=== PATIENT | male | born 1990 | race Caucasian/White ===

== ENCOUNTER 2019-03-26 08:30 | Inpatient (IN) | payer MEDICAID ==
[~2019-03-26] VITALS: Ht 167.6 cm; Wt 78.5 kg
[2019-03-26 08:51] VITALS: BP 115/76
--- NOTE | 2019-03-26 08:54 | NUR ---
PT TO RESTROOM
--- NOTE | 2019-03-26 09:15 | NUR ---
38 Y/O M C/O LOWER ABDOMINAL PAIN 5/10 X1 DAY WITH N/V. PT DENIES FEVER, DIARRHEA. PT BOWEL SOUNDS PRESENT ALL FOUR QUADRANTS. PT VSS. POSITIONED HIGH FOWLERS. NKA
--- NOTE | 2019-03-26 09:37 | NUR ---
DR WILSON AT BEDSIDE EXAMINING PATIENT.
[2019-03-26] MEDS ORDERED: NACL 0.9% 1,000 ML IV ONE (09:39)
[2019-03-26] MEDS ORDERED: ONDANSETRON 4 MG/2 ML VIAL IVP ONE (09:40)
[2019-03-26] MEDS ORDERED: KETOROLAC 30 MG/ML VIAL IVP ONE (09:40)
--- NOTE | 2019-03-26 09:41 | NUR ---
PT LEFT FOR CT BY WHEELCHAIR.
[2019-03-26 10:26] LABS: BASOPHILS % (AUTO) 0.1 % (0.0-2.0); EOSINOPHILS # (AUTO) 0.2 K/uL (0-0.4); EOSINOPHILS % (AUTO) 1.2 % (0.0-4.0); HEMATOCRIT 45.7 % (36-52); HEMOGLOBIN 15.2 g/dL (12.0-18.0); LYMPHOCYTES # (AUTO) 0.7 K/uL (2.0-11.5); LYMPHOCYTES % (AUTO) 4.9 % (20.5-51.1); MEAN CORPUSCULAR HEMOGLOBIN 29 pg (27-31); MEAN CORPUSCULAR HGB CONC 33 g/dL (33-37); MEAN CORPUSCULAR VOLUME 87.2 fL (80-94); MONOCYTES # (AUTO) 0.6 K/uL (0.8-1.0); MONOCYTES % (AUTO) 4.1 % (1.7-9.3); NEUTROPHILS # (AUTO) 12.7 K/uL (1.8-7.7); NEUTROPHILS % (AUTO) 89.7 % (42.2-75.2); PLATELET COUNT (AUTO) 211 K/uL (140-450); RED BLOOD CELL COUNT(AUTO) 5.23 MIL/uL (4.20-6.10); WHITE BLOOD COUNT (AUTO) 14.2 K/uL (4.8-10.8)
[2019-03-26] MEDS ORDERED: ACETAMINOPHEN 325 MG TAB PO PRN (11:05)
[2019-03-26] MEDS ORDERED: MORPHINE SULFATE 2 MG/ML SYR IVP PRN (11:05)
[2019-03-26] MEDS ORDERED: HYDROcodone/APAP 7.5/325 MG 1 TAB PO PRN (11:05)
[2019-03-26] MEDS ORDERED: ONDANSETRON 4 MG/2 ML VIAL IVP PRN ×2 (11:05→14:05)
[2019-03-26 11:13] LABS: ANION GAP 15.2 (8-16); CARBON DIOXIDE 24.6 mmol/L (21-32); POTASSIUM 3.8 mmol/L (3.5-5.1)
[2019-03-26 11:14] LABS: CREATININE 0.8 mg/dL (0.7-1.3); TOTAL BILIRUBIN 0.7 mg/dL (0.0-1.0)
[2019-03-26 11:15] LABS: ALBUMIN 4.3 g/dL (3.4-5.0)
--- NOTE | 2019-03-26 11:21 | NUR ---
X-RAY AT BEDSIDE.
--- NOTE | 2019-03-26 11:38 | NUR ---
Patient will be admitted to care of DR FISH. Admited to MED SURG. Will go to [id number]. Belongings list completed. Report to TANIA SANDERS.
[2019-03-26 11:40] LABS: PROTHROMBIN TIME 10.1 secs (10.8-13.4)
[2019-03-26 11:44] LABS: MAGNESIUM 1.8 mg/dL (1.8-2.4); PHOSPHORUS 2.7 mg/dL (2.5-4.9); THYROID STIMULATING HORMONE 0.75 uIU/mL (0.34-3.74)
--- NOTE | 2019-03-26 12:20 | NUR ---
RECEIVED PT FROM ER. PT IS AAOX4. PT HAS NKA. SKIN INTACT. PT IS SCHEDULED FOR LAP APPY. WILL CONTINUE TO MONITOR
[2019-03-26 12:23] LABS: BILIRUBIN,URINE NEGATIVE (NEGATIVE); BLOOD, URINE NEGATIVE (NEGATIVE); COLOR,URINE YELLOW (YELLOW); LEUKOCYTE ESTERASE ,URINE NEGATIVE (NEGATIVE); NITRITE, URINE NEGATIVE (NEGATIVE); PH,URINE 5.5 (5.0-9.0); UGLUCOSE NEGATIVE (NEGATIVE)
[2019-03-26 12:24] LABS: APPEARANCE,URINE SLIGHTLY HAZY (CLEAR)
--- NOTE | 2019-03-26 12:30 | NUR ---
OBTAINED CONSENT FOR SURGERY. DR. POSADAS TALKED TO THE PT REGARDING THE PROCEDURE. PT VERBALIZED UNDERSTANDING OF THE PROCEDURE. NO FAMILY AT BEDSIDE. PT SIGNED CONSENT.
[2019-03-26 12:32] LABS: BARBITURATE, URINE NEG. ng/ml (NEG <=200); BENZODIAZEPINE, URINE NEG. ng/mL (NEG <=200); CANNABINOID, URINE NEG. ng/mL (NEG <=50); COCAINE, URINE NEG. ng/mL (NEG <=300); OPIATE, URINE NEG. ng/mL (NEG <=2000); PHENCYCLIDINE SCREEN,URINE NEG. ng/mL (NEG <=25)
--- NOTE | 2019-03-26 12:35 | NUR ---
OR STAFF WHEELED THE PT TO OR FOR LAP APPY.
[2019-03-26] MEDS ORDERED: BUPIVACAINE-MPF/EPI 0.25% 30 ML VIAL INJ ONE (12:47)
[2019-03-26] MEDS ORDERED: LIDOCAINE 1% 500 MG/50 ML VIAL ONE (12:53)
[2019-03-26] MEDS ORDERED: GLYCOPYRROLATE 0.2 MG/ML VIAL ONE (13:00)
[2019-03-26] MEDS ORDERED: SUCCINYLCHOLINE CHLORIDE 200 MG/10 ML VIAL IVP ONE (13:00)
[2019-03-26] MEDS ORDERED: DESFLURANE 240 ML BTL INH ONE (13:00)
[2019-03-26] MEDS ORDERED: HYDROmorphone 1 MG/ML AMP ONE (13:00)
[2019-03-26] MEDS ORDERED: ROCURONIUM 50 MG/5 ML VIAL IV ONE (13:00)
[2019-03-26] MEDS ORDERED: DEXAMETHASONE 4 MG/ML VIAL ONE (13:00)
[2019-03-26] MEDS ORDERED: fentaNYL 0.05 MG/ML VIAL ONE (13:00)
[2019-03-26] MEDS ORDERED: ONDANSETRON 4 MG/2 ML VIAL ONE (13:00)
[2019-03-26] MEDS ORDERED: KETOROLAC 30 MG/ML VIAL ONE (13:00)
[2019-03-26] MEDS ORDERED: PROPOFOL 200 MG/20 ML VIAL IV ONE (13:00)
[2019-03-26] MEDS ORDERED: NEOSTIGMINE 1:1000 10 MG/10 ML VIAL ONE (13:00)
[2019-03-26] MEDS ORDERED: HYDROmorphone 1 MG/ML AMP IVP PRN (14:05)
--- NOTE | 2019-03-26 14:40 | NUR ---
PT WAS WHEELED BACK TO HIS ROOM. PT IS AWAKE AND ALERT. NO SIGNS OF DISTRESS. PT DENIED PAIN. V/S TAKEN. CALL LIGHT WITHIN PT'S REACH, BED ON LOW, SIDERAILS UP.
--- NOTE | 2019-03-26 16:05 | NUR ---
FREQUENT ROUNDING DONE. PT IS SLEEPING. FAMILY AT BEDSIDE. PT IS STABLE, NO SIGNS OF DISTRESS. CALL LIGHT WITHIN PT'S REACH. BED ON LOW, SIDERAILS UP.
[2019-03-26] MEDS: metroNIDAZOLE 500 MG/NS PREMIX 100 ML IV SCH ×2 (18:00→19:54)
--- NOTE | 2019-03-26 18:00 | NUR ---
SCHEDULED MEDS GIVEN. PT IS AWAKE AND ALERT. PT DIDN'T COMPLAIN OF ANY PAIN. WILL CONTINUE TO MONITOR
--- NOTE | 2019-03-26 19:05 | NUR ---
POST OP WOUNDS PHOTHOGRAPHED AND ATTACHED IN THE CHART. IV FLUID HANGED.
--- NOTE | 2019-03-26 19:15 | NUR ---
REPORT GIVEN TO INTERNAL AFFAIRS COMMANDER NURSE FOR CONTINUITY OF CARE. PT IS STABLE. CALL LIGHT WITHIN PT'S REACH. BED ON LOW, SIDERAILS UP.
--- NOTE | 2019-03-26 19:16 | NUR ---
RECEIVED REPORT FROM AM SHIFT NURSE. PATIENT ALERT AND ORIENTED X4. NO APPARENT DISTRESS NOTED. REVEIWED CURRENT PLAN OF CARE. VERBALIZED UNDERSTANDING. WILL CONTINUE TO MONITOR.
[2019-03-26] MEDS: DEXT 5% / NACL 0.45% 1,000 ML IV SCH ×2 (19:30→22:45)
--- NOTE | 2019-03-26 20:30 | NUR ---
Received report from the TANIA Tomlin. Initial assessment done. Pt. resting and sleeping. Pt. denies pain. Keep environment quiet and dimlighted.
--- NOTE | 2019-03-26 20:30 | NUR ---
ENDORSED TO NURSE ACEVEDO FOR CONTINUITY OF CARE.
[2019-03-26] MEDS: DOCUSATE SODIUM 100 MG GELCAP PO SCH (22:43)
--- NOTE | 2019-03-26 22:43 | NUR ---
Due meds. given. Pt. returned to sleep. Denies any pain.
[2019-03-27] VITALS: BP 106/56
[2019-03-27] MEDS: metroNIDAZOLE 500 MG/NS PREMIX 100 ML IV SCH ×3 (00:29→12:02)
--- NOTE | 2019-03-27 00:30 | NUR ---
Pt. calm and sleeping. Pt. Flagyl IV as scheduled is administered around this time -see Emar. Pt. given health teachings on the use/benefits of the IV antifungal medication. Pt. verbalized understanding.
--- NOTE | 2019-03-27 04:00 | NUR ---
Pt. sleeping, adlib in bed and can turn self with bilateral SCD"s ongoing during the shift. Pt. with BRP and able to void clear yellow urine. Provided minimal assist with adl's.
--- NOTE | 2019-03-27 06:30 | NUR ---
Due med. as scheduled given - Flagyl IV. Pt. assisted with adl's with BRP. Bilateral SCD"s continued when pt. back in bed.
--- NOTE | 2019-03-27 07:10 | NUR ---
RECEIVED BEDSIDE REPORT FROM FIRST COOK NURSE. PT IS AWAKE AND ALERT, NO S/S OF DISTRESS, NO SOB. PT IS C/O "CONSTANT" PAIN; WILL MEDICATE SOON APPROPRIATE. PT IS ON ROOM AIR, SKIN INTACT. IV SITE L FA 24 G, INFUSING D5 1/2 NS 100 ML/HR. PT IS AMBULATORY AND ABLE TO MAKE NEEDS KNOWN. CALL LIGHT IS WITHIN REACH. Addendum: 03/27/19 at 0818 by Danica Snow RN CHARTED WRONG PT
--- NOTE | 2019-03-27 07:30 | NUR ---
RECEIVED BEDSIDE REPORT FROM BIKE TECHNICIAN NURSE. PT IS AWAKE AND ALERT, NO S/S OF DISTRESS NOTED, ON ROOM AIR, SKIN INTACT ASIDE FROM 3 GLUED ABD INCISIONS S/P LAP APPY. IV SITE L AC 20 G INFUSING D5 1/2 NS 80 ML/HR. PT IS AMBULATORY AND ABLE TO MAKE NEEDS KNOWN. CALL LIGHT IS WITHIN REACH. WILL CONTINUE TO MONITOR.
[2019-03-27 07:40] LABS: HEMATOCRIT 40.5 % (36-52); HEMOGLOBIN 13.6 g/dL (12.0-18.0); LYMPHOCYTES % (AUTO) 8.9 % (20.5-51.1); MEAN CORPUSCULAR HEMOGLOBIN 30 pg (27-31); MEAN CORPUSCULAR HGB CONC 34 g/dL (33-37); MEAN CORPUSCULAR VOLUME 87.8 fL (80-94); MONOCYTES # (AUTO) 0.8 K/uL (0.8-1.0); MONOCYTES % (AUTO) 7.3 % (1.7-9.3); NEUTROPHILS # (AUTO) 9.1 K/uL (1.8-7.7); NEUTROPHILS % (AUTO) 83.8 % (42.2-75.2); PLATELET COUNT (AUTO) 204 K/uL (140-450); RED BLOOD CELL COUNT(AUTO) 4.61 MIL/uL (4.20-6.10); WHITE BLOOD COUNT (AUTO) 10.9 K/uL (4.8-10.8)
[2019-03-27 07:41] LABS: CREATININE 0.8 mg/dL (0.6-1.3); POTASSIUM 3.9 mmol/L (3.5-5.1)
[2019-03-27 07:45] LABS: CARBON DIOXIDE 25.9 mmol/L (21-32)
[2019-03-27 07:47] LABS: CHOL/HDL RATIO 2.9 (1-4.5)
[2019-03-27 08:00] VITALS: BP 102/54
--- NOTE | 2019-03-27 08:57 | NUR ---
PATIENT HAS BEEN SCREENED AND CATEGORIZED LOW NUTRITION RISK. PATIENT WILL BE SEEN WITHIN 7 DAYS OF ADMISSION. 04/01/[address]
[2019-03-27] MEDS ORDERED: FAMOTIDINE 20 MG TAB PO SCH (09:00)
[2019-03-27] MEDS: DOCUSATE SODIUM 100 MG GELCAP PO SCH (09:35)
--- NOTE | 2019-03-27 09:42 | NUR ---
AM MEDS ADMINISTERED, PT TOLERATED WELL. PT DENIES PAIN AT THIS TIME
[2019-03-27] MEDS: DEXT 5% / NACL 0.45% 1,000 ML IV SCH (12:10)
[2019-03-27] MEDS ORDERED: HYDR-5122 PO (13:25)
[2019-03-27] MEDS ORDERED: INFLUENZA VACCINE QUAD 0.5 ML SYR IMVAC PRN (14:10)
--- NOTE | 2019-03-27 14:43 | NUR ---
DC TEACHING GIVEN, PT VERBALIZED UNDERSTANDING. PRESCRIPTION GIVEN. FLU SHOT ADMINISTERED. IV SITE AND WRIST BANDS REMOVED. PT WAITING FOR HIS TO COME PICK HIM UP.
--- NOTE | 2019-03-27 15:05 | NUR ---
PT HAS DC'D, PICKED UP BY HIS .
== END 2019-03-27 15:05 | disposition home or self-care (01) | DRG 234 ==
LOC: MED 08:30 → EDBD 08:30 → MTU 11:04
PROVIDERS: ADMIT General Practice; ATTEND General Practice
PROC: 0DTJ4ZZ Resection of Appendix, Percutaneous Endoscopic Approach (ICD-10-PCS; principal; 2019-03-26 13:00)
PROC: 3E02340 Introduction of Influenza Vaccine into Muscle, Percutaneous Approach (ICD-10-PCS; 2019-03-27)
DX: K35.80 Unspecified acute appendicitis (principal); Z23 Encounter for immunization
CPT/HCPCS: 36415; 71045; 80048; 80053; 80305; 81003; 83036; 83605; 83690; 83735; 83880; 84100; 84443; 84484; 85025; 85610; 85730; 86886; 86900; 86901; 87040; 87081; 88304; 96361; 96374; 96375; 99285; J0330; J0696; J1100; J1170; J1885; J2001; J2405; J2704; J2710; J3010; J3490; J7030; J7060; Q0092